=== PATIENT | female | born 1955 | race Caucasian/White ===

== ENCOUNTER → 2018-05-12 | Outpatient (CLI) | payer OTHER ==
[~2018-05-12] MED LIST: AUGMENTIN 875875 MG PO; COLACE100 MG PO; ENOXAPARIN40 MG/0.1 SUBQ; HYDROCODON-ACE1 EAC7 PO; HYDROCODONE-AP1 EAC6 PO; IBUPROFEN 800800 M1 PO; IBUPROFEN200 M2 PO; NORCO 5-325 TA1 EACH PO; OXYCODONE HCL 55 MG PO; OXYCODONE HCL10 MG PO; TRAMADOL 50 MG50 MG PO; ULTRAM 50MG TAB50 MG PO
== END ==
LOC: M.RAD 13:20
DX: Z12.31 Encounter for screening mammogram for malignant neoplasm of breast (principal)

== ENCOUNTER → 2019-04-21 | Outpatient (CLI) | payer OTHER | LOC: M.RAD 16:07 | DX: R05 Cough (principal); R06.2 Wheezing ==

== ENCOUNTER 2019-05-24 12:20 | Emergency (ER) | payer OTHER ==
[~2019-05-24] VITALS: Ht 157.5 cm; Wt 83.9 kg
[2019-05-24] MEDS ORDERED: TRAMADOL 50 MG50 MG PO (12:31)
[2019-05-24] MEDS ORDERED: XARELTO20 MG PO ×2 (13:44→13:46)
[2019-05-24] MEDS ORDERED: XARELTO15 MG PO ×2 (13:44→13:46)
[2019-05-24 14:30] LABS: ABSOLUTE BASOPHILS 0.1 thou/uL (0.0-0.2); ABSOLUTE EOSINOPHILS 0.3 thou/uL (0.0-0.7); ABSOLUTE LYMPHOCYTES 2.8 thou/uL (0.8-5.3); ABSOLUTE MONOCYTES 0.6 thou/uL (0.0-1.2); ABSOLUTE NEUTROPHILS 3.7 thou/uL (1.6-8.1); BASOPHILS 0.9 %; EOSINOPHILS 3.5 %; HEMATOCRIT 41.1 % (37.0-47.0); HEMOGLOBIN 14.3 gm/dL (12.0-15.0); LYMPHOCYTES 37.8 %; MCHC 34.7 g/dL (28.0-37.0); MCV 95.2 fL (80.0-100.0); MONOCYTES 7.8 %; MPV 7.5 fl. (7.2-11.1); NUCLEATED RBCS 0 /100WBC; PLATELET COUNT* 354 thou/uL (150-400); RBC 4.32 mil/uL (4.20-5.00); RDW-CV 13.5 % (10.5-14.5); WBC 7.3 thou/uL (4.0-11.0)
[2019-05-24 14:43] LABS: PROTIME 9.9 Seconds (9.20-11.50)
[2019-05-24 14:45] LABS: CALCIUM 8.6 mg/dL (8.5-10.1); CREATININE 0.8 mg/dL (0.6-1.3); POTASSIUM 4.2 mmol/L (3.5-5.1)
[2019-05-24 14:47] LABS: ALBUMIN 3.8 g/dL (3.4-5.0); TOTAL BILIRUBIN 0.5 mg/dL (<0.1-1.0); TOTAL PROTEIN 7.1 g/dL (6.4-8.2)
[2019-05-24 14:57] VITALS: BP 127/76
== END 2019-05-24 14:58 | disposition home or self-care (01) ==
LOC: M.ERS 12:20
PROVIDERS: Emergency Medicine
DX: I82.432 Acute embolism and thrombosis of left popliteal vein (principal); Z88.2 Allergy status to sulfonamides; Z88.8 Allergy status to other drugs, medicaments and biological substances; Z90.49 Acquired absence of other specified parts of digestive tract

== ENCOUNTER → 2019-12-21 | Outpatient (CLI) | payer MEDICARE, OTHER ==
[2019-12-21] VITALS (10 sets, daily range): BP systolic 127–156; BP diastolic 59–75
[~2019-12-21] VITALS: Ht 157.5 cm; Wt 83.9 kg
[~2019-12-21] MED LIST changes: +B12 ACTIVE1000 MCG; +IRON; +PROAIR DIGIHAL90 MCG INH; +ROPINIROLE HCL0.5 MG; +VITAMIN D350 MCG PO; +XARELTO15 MG PO; +XARELTO20 MG PO
[2019-12-21 10:04] LABS: HEMATOCRIT 39.6 % (37.0-47.0); HEMOGLOBIN 12.8 gm/dL (12.0-15.0); MCH 29.6 pg (26.0-34.0); MCHC 32.5 g/dL (28.0-37.0); MCV 91.1 fL (80.0-100.0); MPV 6.8 fl. (7.2-11.1); RBC 4.34 mil/uL (4.20-5.00); RDW-CV 16.4 % (10.5-14.5); WBC 6.6 thou/uL (4.0-11.0)
[2019-12-21 10:17] LABS: ANION GAP 7 mmol/L (7-16); BUN 10 mg/dL (7-18); CALCIUM 8.6 mg/dL (8.5-10.1); CHLORIDE 104 mmol/L (98-107); CO2 29 mmol/L (21-32); CREATININE 0.9 mg/dL (0.6-1.3); GLUCOSE 98 mg/dL (70-99); POTASSIUM 4.1 mmol/L (3.5-5.1); SODIUM 140 mmol/L (136-145)
[2019-12-21 10:21] LABS: ALBUMIN 3.7 g/dL (3.4-5.0); ALKALINE PHOSPHATASE 74 U/L (46-116); CHOLESTEROL 219 mg/dL (<200); HDL CHOLESTEROL 63 mg/dL (>40); LDL CHOLESTEROL 138 mg/dL (<100); SGOT 17 U/L (15-37); SGPT 25 U/L (30-65); TC:HDL 3.5 Ratio (Not establshd); TOTAL BILIRUBIN 0.4 mg/dL (<0.1-1.0); TOTAL PROTEIN 7.2 g/dL (6.4-8.2); TRIGLYCERIDE 92 mg/dL (<150); VLDL 18 mg/dL (<40)
[2019-12-21 10:23] LABS: SERUM ASSESSMENT Clear
[2019-12-21 10:32] LABS: APTT 23.4 Seconds (25.0-31.3); INR 0.9; PROTIME 9.5 Seconds (9.20-11.50)
--- NOTE | 2019-12-21 18:32 | EKG ---
[place] [address] ELECTROCARDIOGRAM REPORT Name: ALEKSANDER CHI Room: [facility]#: [id number] Admission: 12/21/19 Attend Phys: Kailee Fernandez Discharge: Date of : 53 Date of Service: 12/21/19 1044 Report #: [id number] THIS REPORT FOR: //name// [facility] Test Date: 2019-12-21 Test Time: 10:44:54 Pat Name: ALEKSANDER CHI Department: Room: Gender: F Care Management Coordinator: : 1955 Requested By: Christiano Mtz Order Number: [id number] Flip MD: Nii Haley Measurements Intervals [place] Rate: 54 P: 31 MD: 148 QRS: 46 QRSD: 102 T: 62 QT: 454 QTc: 431 Interpretive Statements Sinus rhythm Low voltage, extremity leads No previous ECG available for comparison Electronically Signed On 12-21-2019 18:32:18 CDT by Nii Haley [email or web address] <ELECTRONICALLY SIGNED> By: Nii Haley MD, [facility] 12/21/19 1832 1044 1044 Nii Haley MD, FACC /EPI
--- NOTE | 2019-12-22 11:28 | CARD ---
[address] [address] CARDIAC CATH REPORT Name: ALEKSANDER CHI [id number]mission: 12/21/19 Attend Phys: Christiano Mtz MD, Discharge: Date of : 53 Report #: [id number] THIS REPORT FOR: //name// cc: Celeste Santana Tammy RNP ~ APPROVED REPORT Study performed: 12/21/2019 11:27:40 Patient Details Patient Status: Out-Patient Room #: The patient is a 64 year-old female Event Personnel Aura Ordonez RN, Alexandra Tapia Monitor, Isabelle Flaherty RTR Scrub, Christiano Mtz Cashier Clerk, Justin Levy RTR Scrub Procedures Performed Art Access - R femoral artery Left Heart Cath w/or w/o Coronaries Hemostasis- Mynx 6/7 Fr Indication Positive stress test Risk Factors Hypercholesterolemia Admission/Lab Medications/Medications given during procedure Lidocaine Subcut 10 ml, Midazolam (Versed) IV 1 mg, Fentanyl IV 25 mcg Procedure Narrative The patient was brought electively to the Cardiac Catheterization Laboratory and was prepped and draped in a sterile manner. The right femoral was infiltrated with 2% Lidocaine subcutaneous anesthesia. A [place] 6 FR sheath was inserted into the right femoral artery. Coronary angiography was performed using coronary diagnostic catheters. The right coronary system was accessed and visualized with a Diagnostic 6 Fr JR 4 catheter. The left coronary system was accessed and visualized with a Diagnostic 6 Fr JL 4 catheter. The left ventricle was accessed and visualized with a Diagnostic 6 Fr Pigtail catheter. Left ventricular/Aortic Valve gradient assessed via catheter pullback. [place] [address] CARDIAC CATH REPORT Name: ALEKSANDER CHI Room: [facility]#: [id number] Admission: 12/21/19 Attend Phys: Christiano Mtz MD, Discharge: Date of : 53 Report #: [id number] projection. Pre-demployment femoral angiogram was performed . Closure device was deployed with a Fr Mynx 6Fr/7Fr. The patient tolerated the procedure well and there were no complications associated with the procedure. There was no hematoma. Intraoperative Conscious Sedation Sedation start time: 12:19 Case end Time: 12:34 Fentanyl 25 mcg Versed 1 mg Fluoro Time: 2.4 minutes Dose: DAP 30035 cGycm2 462.14 mGy Contrast Type and Amount: Visipaque 90 ml Diagnostic Cath Left Main 0% narrowing LAD Prominent vessel with 0% narrowing Circumflex Dominant vessel with 0% narrowing Right Coronary Small nondominant vessel with 0% narrowing Left Ventriculography The left ventricle is normal in size with normal contractility. The left ventricular ejection fraction is estimated to be 60%. Left ventricular wall motion abnormalities are not present. There is no mitral insufficiency. Hemodynamics The aortic pressure is 159/64 mmHg with a mean of 86 mmHg. The left ventricular pressure is 155/-5 mmHg with a mean of mmHg. The left ventricular end diastolic pressure is 12 mmHg. There was no gradient across the aortic valve upon pullback. Conclusion 1. Normal coronary arteries 2. Normal left ventricular systolic function, estimated ejection fraction being 60% 3. Mild systemic systolic hypertension Recommendations [place] [address] CARDIAC CATH REPORT Name: ALEKSANDER CHI Room: [facility]#: [id number] Admission: 12/21/19 Attend Phys: Christiano Mtz MD, Discharge: Date of : 53 Report #: [id number] Diagnostic Cath Approved by: Christiano Mtz MD Date/Time: 12/22/2019 11:28:01 <ELECTRONICALLY SIGNED> By: Christiano Mtz MD, FACC 12/22/19 1128 1128 1128Jokenn Mtz MD, FACC /INF
== END ==
LOC: M.CL 09:39
PROVIDERS: ATTEND Internal Medicine
DX: R94.39 Abnormal result of other cardiovascular function study (principal); R07.89 Other chest pain; E66.9 Obesity, unspecified; K21.9 Gastro-esophageal reflux disease without esophagitis; F17.200 Nicotine dependence, unspecified, uncomplicated; Z86.718 Personal history of other venous thrombosis and embolism; Z79.899 Other long term (current) drug therapy; Z98.890 Other specified postprocedural states; Z20.828 Contact with and (suspected) exposure to other viral communicable diseases

== ENCOUNTER → 2019-12-30 | Outpatient (CLI) | payer MEDICARE, OTHER | LOC: M.ULTRA 10:45 | PROVIDERS: ATTEND Internal Medicine Cardiovascular Disease | DX: T14.8XXA Other injury of unspecified body region, initial encounter (principal); R60.9 Edema, unspecified; X58.XXXA Exposure to other specified factors, initial encounter; Y93.89 Activity, other specified; Y92.89 Other specified places as the place of occurrence of the external cause; Y99.8 Other external cause status ==

== ENCOUNTER → 2020-06-02 | Outpatient (CLI) | payer MEDICARE, OTHER | LOC: M.RAD 16:07 | PROVIDERS: ATTEND Registered Nurse Diabetes Educator | DX: R07.81 Pleurodynia (principal); M25.512 Pain in left shoulder; W19.XXXA Unspecified fall, initial encounter ==

== ENCOUNTER → 2020-11-08 | Outpatient (CLI) | payer MEDICARE, OTHER | LOC: M.RAD 11:08 | PROVIDERS: ATTEND Registered Nurse Diabetes Educator | DX: J40 Bronchitis, not specified as acute or chronic (principal); R05 Cough ==

== ENCOUNTER → 2020-12-07 | Outpatient (CLI) | payer MEDICARE, OTHER | LOC: M.RAD 14:53 | PROVIDERS: ATTEND Registered Nurse Diabetes Educator | DX: Z12.31 Encounter for screening mammogram for malignant neoplasm of breast (principal) ==

== ENCOUNTER → 2021-04-03 | Outpatient (CLI) | payer MEDICARE, OTHER | LOC: M.CT 13:43 | PROVIDERS: ATTEND Registered Nurse Diabetes Educator | DX: Z12.2 Encounter for screening for malignant neoplasm of respiratory organs (principal); R05.3 Chronic cough; F17.210 Nicotine dependence, cigarettes, uncomplicated ==